=== PATIENT | male | born 1995 | race African-American/Black ===

== ENCOUNTER 2017-03-20 00:52 | Emergency (ER) | payer MEDICAID, OTHER ==
[~2017-03-20] VITALS: Ht 172.7 cm; Wt 65.3 kg
[2017-03-20 01:05] VITALS: BP_SYST 116
[2017-03-20 02:40] VITALS: BP_SYST 119
[2017-03-20] MEDS ORDERED: IBUPROFEN 600 MG TABLET PO ONE (02:45)
== END 2017-03-20 02:40 | disposition home or self-care (01) ==
LOC: SED 00:52
DX: S29.012A Strain of muscle and tendon of back wall of thorax, initial encounter (principal); J45.909 Unspecified asthma, uncomplicated; V89.2XXA Person injured in unspecified motor-vehicle accident, traffic, initial encounter; Y93.89 Activity, other specified; Y92.488 Other paved roadways as the place of occurrence of the external cause; Y99.8 Other external cause status
CPT/HCPCS: 99283